=== PATIENT | female | born 1960 | race African-American/Black ===

== ENCOUNTER 2021-09-15 13:19 | Emergency (ER) | payer OTHER ==
[~2021-09-15] VITALS: Ht 167.6 cm; Wt 68.0 kg
[2021-09-15] MEDS ORDERED: CLOT15CR27 TP (16:47)
[2021-09-15 16:57] VITALS: BP 176/90
== END 2021-09-15 17:11 | disposition home or self-care (01) ==
LOC: ER 13:19
DX: B35.3 Tinea pedis (principal); S90.424A Blister (nonthermal), right lesser toe(s), initial encounter; X58.XXXA Exposure to other specified factors, initial encounter; Y93.9 Activity, unspecified; Y92.9 Unspecified place or not applicable; I10 Essential (primary) hypertension; E05.90 Thyrotoxicosis, unspecified without thyrotoxic crisis or storm
CPT/HCPCS: 99282